=== PATIENT | female | born 1985 | race Caucasian/White ===

== ENCOUNTER 2025-07-22 10:03 | Outpatient (CLI) | payer OTHER, SELFPAY | END 2025-07-22 10:04 | disposition home or self-care (01) | LOC: ANHAUDIO 10:03 | PROVIDERS: Visit Provider Otolaryngology Otolaryngology/Facial Plastic Surgery | DX: H90.3 Sensorineural hearing loss, bilateral (principal); H93.8X1 Other specified disorders of right ear; H92.01 Otalgia, right ear | CPT/HCPCS: 92557; 92567 ==